=== PATIENT | female | born 1940 | race Caucasian/White ===

== ENCOUNTER → 2019-01-02 | Outpatient (REF) | payer MEDICARE | END | disposition home or self-care (01) | LOC: NUCMED 12-16 08:00 | PROVIDERS: ATTEND Internal Medicine Geriatric Medicine | DX: E04.1 Nontoxic single thyroid nodule (principal) | CPT/HCPCS: A9516 ==

== ENCOUNTER 2021-06-20 21:56 | Inpatient (IN) | payer MEDICARE ==
[~2021-06-20] VITALS: Ht 157.5 cm; Wt 77.0 kg
--- NOTE | 2021-06-20 22:05 | NUR ---
PT TO ROOM 14 FROM OUTSIDE WAITING AREA DO TO COVID RESTRICTIONS. YELLING AT ME...APOLOGIZED AND EXPLAINED THAT THINGS ARE A LITTLE SLOWER DO TO THE PANDEMIC...HE YELLED SOME MORE AND TOLD ME THERE WAS NO PANDEMIC. I TOLD HIM THERE WAS NO NEED TO BE RUDE...CONTINUED TO YELL. TOLD HIM TO WAIT OUTSIDE BECAUSE HE DID NOT HAVE SHOES ON. TRIAGED AT BEDSIDE...PT ONLY ANSWERED EVERY QUESTION WITH "I DON'T KNOW...ASK MY ."
[2021-06-20 22:55] LABS: HEMATOCRIT 35.4 % (37.0-47.0); HEMOGLOBIN 11.9 g/dl (12.0-16.0); IMMATURE GRANULOCYTES 0.6 % (0.0-5.0); MEAN CELL VOLUME 94.9 fL CALC (80.0-100.0); MEAN CORPUSCULAR HGB 31.9 pG CALC (26.0-32.0); MEAN CORPUSCULAR HGB CONC 33.6 g/dL CAL (32.0-36.0); NEUT# 10.09 thou/uL (2.00-7.15); RED BLOOD COUNT 3.73 mill/uL (4.20-5.60); RED CELL DISTRI WIDTH 12.7 % (11.5-15.5)
--- NOTE | 2021-06-20 23:00 | NUR ---
Reassessment of patient completed. No distress noted.
--- NOTE | 2021-06-20 23:05 | NUR ---
PT IS BEING NONCOMPLIANT AND DEMANDING. SHE WILL NOT FOLLOW COMMANDS AND REFUSES TO COMPLY WITH REQUEST. WHEN YOU TELL HER THE ORDER YOU ARE GOING TO COMPLETE A TASK AND IT IS NOT WHAT SHE WANTS SHE ACCUSES ME OF BEING MEAN & FRESH WHEN I ASST. HER ONTO A BED RICH(HER WAS IN THE ROOM)
[2021-06-20 23:14] LABS: ALBUMIN 4.5 g/dL (3.2-5.0); ALKALINE PHOSPHATASE 77 u/l (38-126); AMYLASE 64 u/l (30-110); ANION GAP 16 (6-22 (CALC)); BILIRUBIN, TOTAL 0.5 mg/dL (0.0-1.4); BUN 17 mg/dL (8-23); BUN/CREATININE RATIO 25 (12-20 (CALC)); CARBON DIOXIDE 27 mmol/l (22-30); CHLORIDE 95 mmol/l (95-108); CREATININE 0.7 mg/dL (0.5-1.0); GFR > 60 ML/MIN (>=60 (CALC)); GFR FOR AFR.AMER. > 60 ML/MIN (>=60 (CALC)); LIPASE 104 u/l (23-300); POTASSIUM 3.5 mmol/l (3.5-5.1); SGOT/AST 26 u/l (9-36); SODIUM 134 mmol/l (137-146); TOTAL PROTEIN 7.2 g/dL (6.3-8.2)
[2021-06-20 23:16] LABS: INTERNATIONAL NORMALIZED RATIO 0.9 RATIO (0.7-1.3); PROTHROMBIN TIME 9.8 SECONDS (9.0-12.5)
[2021-06-21] VITALS (56 sets, daily range): BP systolic 64–181; BP diastolic 30–66
[2021-06-21 00:23] LABS: URINE BILIRUBIN - DIPSTICK NEGATIVE (NEGATIVE); URINE BLOOD DIPSTICK MODERATE (NEGATIVE); URINE COLOR YELLOW; URINE GLUCOSE - DIPSTICK NEGATIVE (NEGATIVE); URINE KETONE 15 mg/dL (NEGATIVE); URINE LEUK ESTERASE LARGE (NEGATIVE); URINE NITRITE - DIPSTICK NEGATIVE (Negative); URINE PH 7.5 (4.5-8.0); URINE PROTEIN - DIPSTICK 30 mg/dL (NEG-TRACE); URINE SPECIFIC GRAVITY 1.015; URINE UROBILINOGEN - DIPSTICK 0.2 E.U./dL (0.2)
[2021-06-21 00:25] LABS: URINE BACTERIA FEW hpf; URINE SQUAMOUS EPITHELIAL CELL FEW EPI/hpf (0-FEW)
--- NOTE | 2021-06-21 00:35 | NUR ---
Reassessment of patient completed. No distress noted. PT REFUSESS TO FOLLOW ANY REQUEST AND IS VERY ABRASIVE WITH ANY CONTACT WITH HER AND NURSING STAFF
--- NOTE | 2021-06-21 01:30 | NUR ---
Reassessment of patient completed. No distress noted.
[2021-06-21 05:56] LABS: IMMATURE GRANULOCYTES 0.1 % (0.0-5.0); MEAN CELL VOLUME 95.6 fL CALC (80.0-100.0); MEAN CORPUSCULAR HGB 32.6 pG CALC (26.0-32.0); NEUT# 11.03 thou/uL (2.00-7.15); RED BLOOD COUNT 2.98 mill/uL (4.20-5.60); RED CELL DISTRI WIDTH 12.9 % (11.5-15.5)
[2021-06-21 06:00] LABS: ALBUMIN 3.7 g/dL (3.2-5.0); ALKALINE PHOSPHATASE 59 u/l (38-126); ANION GAP 12 (6-22 (CALC)); BUN 15 mg/dL (8-23); BUN/CREATININE RATIO 22 (12-20 (CALC)); CARBON DIOXIDE 27 mmol/l (22-30); CHLORIDE 98 mmol/l (95-108); CREATININE 0.7 mg/dL (0.5-1.0); GFR > 60 ML/MIN (>=60 (CALC)); GFR FOR AFR.AMER. > 60 ML/MIN (>=60 (CALC)); SGOT/AST 24 u/l (9-36); SODIUM 133 mmol/l (137-146)
--- NOTE | 2021-06-21 06:01 | NUR ---
PT HAS MADE MULTIPLE ATTEMPTS TO GET OUT OF BED AND I HAVE ASKED HER MULTIPLE TIME TO USE THE CALL GILMORE IF SHE NEEDS ASST.
[2021-06-21 06:02] LABS: HEMATOCRIT 28.5 % (37.0-47.0); HEMOGLOBIN 9.7 g/dl (12.0-16.0)
[2021-06-21 06:10] LABS: BILIRUBIN, TOTAL 0.9 mg/dL (0.0-1.4)
--- NOTE | 2021-06-21 07:00 | NUR ---
PATIENT CALLING/YELLING MULTIPLE TIMES, STATES SHE NEEDS HER SHEETS STREIGHTENED.
--- NOTE | 2021-06-21 07:20 | NUR ---
PATIENT ASSISTED EXTENSIVLY TO ACHEIEVE PERSONAL COMFORTS
--- NOTE | 2021-06-21 08:01 | NUR ---
REPORT TO OR NURSE, PATIENT TO OR @THIS TIME
[2021-06-21] MEDS ORDERED: ALLOPURINOL100 MG PO (11:01)
[2021-06-21] MEDS ORDERED: LIPITOR10 M1 PO (11:02)
[2021-06-21] MEDS ORDERED: CENTRUM ADULTS1 TAB PO (11:03)
[2021-06-21] MEDS ORDERED: CITRACAL +3 PO (11:04)
[2021-06-21] MEDS ORDERED: ASPIRIN ENTERIC81 MG PO (11:05)
[2021-06-21] MEDS ORDERED: FLUCONAZOLE150 MG PO (11:06)
[2021-06-21] MEDS ORDERED: FUROSEMIDE20 MG PO (11:06)
[2021-06-21] MEDS ORDERED: METOPROL TAR25 MG PO (11:07)
[2021-06-21] MEDS ORDERED: NITROGLYCERIN0.4 MG SL (11:09)
[2021-06-21] MEDS ORDERED: NYSTATIN100000 UN2 TOP (11:11)
[2021-06-21] MEDS ORDERED: POTASSIUM99 MG PO (11:12)
[2021-06-21] MEDS ORDERED: OMEPRAZOLE DR40 MG PO (11:12)
[2021-06-21] MEDS ORDERED: VIT E SOLUBL400 UNIT PO (11:15)
[2021-06-21] MEDS ORDERED: ACETAMINOPHEN325 MG PO (11:26)
--- NOTE | 2021-06-21 12:00 | NUR ---
PATIENT RECEIVED TO ICU ROOM 1 VIA BED. BEDSIDE REPORT FROM OR TEAM. PATIENT INTUBATED. NG IN PLACE. ASSESSMENT COMPLETED. IVF INFUSING. LILIANA-SYNEPHRINE INFUSING PER FLIGHT DATA TECHNICIAN. PROPOFOL INFUSING. IV PATENT X2. RT AT BEDSIDE TO PLACE PATIENT ON VENTILATOR. VS SET TO EVERY 5 MINUTES FOR MEDICATION TITIRATIONS. WILL CONTINUE TO MONITOR CLOSELY.
--- NOTE | 2021-06-21 13:00 | NUR ---
PATIENT REMAINS INTUBATED AND SEDATED. VSS ON MONITOR. TITRATIONS PER TITRATION CHARTING. WILL CONTINUE TO MOMITOR.
--- NOTE | 2021-06-21 14:15 | NUR ---
DR PERRY AT BEDSIDE. PLAN OF CARE DISCUSSED. NEW ORDERS RECEIVED. CONSULTED VIA PHONED WITH DR MURRAY.
--- NOTE | 2021-06-21 14:30 | NUR ---
1 BOLUS OF LACTED RINGER INFUSING PER DR PERRY VERBAL ORDER
--- NOTE | 2021-06-21 15:30 | NUR ---
2ND BOLUS OF LACTATED RINGER INFUSING PER ORDERS
--- NOTE | 2021-06-21 16:00 | NUR ---
LAB AT BEDSIDE FOR TYPE AND SCREEN. ARM BAND PLACED AT THIS TIME.
--- NOTE | 2021-06-21 16:26 | NUR ---
PHONED TWAN. RECEIVED CONSENT FOR 2 UNITS OF PRBCS. WITNESS Anna GEE RN.
--- NOTE | 2021-06-21 17:33 | NUR ---
FIRST UNIT OF PRBCS INFUSING AT THIS TIME. TEMP 96.1 NOÉ GARCIA APPLIED
--- NOTE | 2021-06-21 19:40 | NUR ---
1 ST UNIT OF PRBC'S INFUSED WITHOUT INCIDENT. VSS. AFEBRILE.
--- NOTE | 2021-06-21 19:45 | NUR ---
PATIENT REMAINS INTUBATED ON VENT. VENT SETTINGS PER VENT INTERVENTION SCREEN. SEDATED ON PROPOFOL 35 MCG/KG/MIN WITH RASS -3. BREATH SOUNDS CLEAR. NGT TO LIS DRAINS SMALL AMOUNT OF LIGHT ROSS. LARGE ABD DSG INTACT WITH SHADOW OF DRAINAGE AT LOWER PORTION OF DSG. NO BOWEL SOUNDS HEARD. GREER DRAINS CLEAR YELLOW URINE. NO PERIPHERAL EDEMA, PULSES INTACT. SCD'D ON BILATERALLY. SALINE LOCK INTACT TO RAC. LSCTLC IN PLACE WITH PROPOFOL INFUSING AND LILIANA-SYNEPHERINE INFUSING AT 1 MCG/KG/MIN. SOFT WRIST RESTRAINTS IN PLACE. SCD'S IN PLACE BILATERALLY. [employer]NA DEVELOPER SHOWS SR.
--- NOTE | 2021-06-21 20:25 | NUR ---
SECOND UNIT OF PRBC'S STARTED AFTER VERIFICATION BY 2 NURSES. VSS. WILL CONTINUE TO MONITOR CLOSELY.
--- NOTE | 2021-06-21 20:40 | NUR ---
VSS. NO S/S OF TRANSFUSION REACTION.
--- NOTE | 2021-06-21 21:25 | NUR ---
TOLERATING BLOOD TRANSFUSION WELL. VSS. AFEBRILE.
--- NOTE | 2021-06-21 22:00 | NUR ---
REMAINS INTUBATED AND SEDATED. VSS. PROPOFOL GTT CONTINUES AT 35 MCG/KG/MIN. SR ON MONITOR.
--- NOTE | 2021-06-21 22:30 | NUR ---
2 ND UNIT OF PRBC'S INFUSED WITHOUT INCIDENT. VSS. AFEBRILE. SR ON MONITOR.
[2021-06-22] VITALS (46 sets, daily range): BP systolic 81–183; BP diastolic 41–74
--- NOTE | 2021-06-22 | NUR ---
VENT SETTINGS UNCHANGED FROM EARLIER. O2 SATS MAINTAINED AT 100% VSS. SR ON MONITOR. PROPOFOL GTT CONTINUES AT 35 MCG/KG/MIN AND NE-SYNEPHERINE GTT INFUSING AT 0.7 MCG/KG/MIN.
--- NOTE | 2021-06-22 02:00 | NUR ---
INUBATED AND SEDATED. RASS -3 ON PROPOFOL AT 35 MCG/KG/MIN. VSS. IN NO ACCUT DISTRESS. WILL CONTINUE TO MONITOR CLOSELY.
--- NOTE | 2021-06-22 03:00 | NUR ---
COMPLETE BED BATH GIVEN. LINENS CHANGED, TURNED AND REPOSITIONED. SUX ORALLY FOR THICK CLEAR WITH SOME BLOODY STREAKS.
--- NOTE | 2021-06-22 04:00 | NUR ---
RESTING QUIETLY AND CALMLY. REMAINS ON PROPOFOL GTT AT 35 MCG/KG/MIN. REMAIN INTUBATED ON VENT. VSS. SR ON MONITOR.
--- NOTE | 2021-06-22 05:00 | NUR ---
PATIENT WIDE AWAKE. PATIENT REACHING FOR ETT AND BITING DOWN ON TUBE. CALL TO Anna PACK/GLASS SANDER BELT BY Lizzie ROOT/SUPERVISOR CHANNEL PROCESS, ORDERS RECEIVED TO EXTUBATE PATIENT. PROPOFOL GTT DC'D. EXTUBATED BY RT AND PLACED ON O2 AT 3 L NC. O2 SAT 96-97% WEANING LILIANA-SYNEPHERINE GTT.
--- NOTE | 2021-06-22 05:30 | NUR ---
PATIENT RESTING QUIETLY. VSS. MAINTAINS O2 SATS 96%
--- NOTE | 2021-06-22 06:00 | NUR ---
NO CHANGES TO REPORT. VSS. O2 SAT 96% ST ON MONITOR.
[2021-06-22 06:08] LABS: ANION GAP 9 (6-22 (CALC)); BUN 15 mg/dL (8-23); BUN/CREATININE RATIO 21 (12-20 (CALC)); CARBON DIOXIDE 24 mmol/l (22-30); CHLORIDE 100 mmol/l (95-108); CREATININE 0.7 mg/dL (0.5-1.0); GFR > 60 ML/MIN (>=60 (CALC)); GFR FOR AFR.AMER. > 60 ML/MIN (>=60 (CALC)); POTASSIUM 4.1 mmol/l (3.5-5.1); SODIUM 129 mmol/l (137-146)
[2021-06-22 06:11] LABS: HEMATOCRIT 26.4 % (37.0-47.0); HEMOGLOBIN 8.7 g/dl (12.0-16.0); IMMATURE GRANULOCYTES 0.3 % (0.0-5.0); MEAN CELL VOLUME 97.1 fL CALC (80.0-100.0); NEUT# 8.33 thou/uL (2.00-7.15); RED BLOOD COUNT 2.72 mill/uL (4.20-5.60); RED CELL DISTRI WIDTH 13.9 % (11.5-15.5)
--- NOTE | 2021-06-22 06:30 | NUR ---
PATIENT REMOVED NGT.
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
--- NOTE | 2021-06-22 20:15 | NUR ---
PATIENT RESTING IN BED. AWAKE, ALERT, CONFUSED. ORIENTED TO PERSON ONLY. NOT FOLLOWING ANY DIRECTIONS. ABLE TO MOVE ALL EXTREMITIES. PATIENT UNCOOPERATIVE AND ARGUMENTIVE. GRABS AT STAFF. SOFT WRIST RESTRAINTS ON BILATERALLY. RESP NON-LABORED. O2 ON AT 3 L NC. BREATH SOUNDS CLEAR THROUGHOUT LUNG ZEPEDA. LARGE ABD DSG INTACT WITH SHADOW OF DRAINAGE AT LOWER PORTION OF DSG. PUREWICK IN PLACE DRAINS CLEAR YELLOW URINE. TRACE EDEMA OF BLE. LSCTLC IN PLACE WITH AMIODARONE GTT DECREASED AT THIS TIME TO 0.5 MG/MIN AND LIPIDS AT 21 ML/HR. RAC SALINE LOCK IN PLACE. SCD'S IN PLACE. HOSPICE NURSE SHOWS SR-ST. DISCUSSED PLAN OF CARE.
--- NOTE | 2021-06-22 22:03 | NUR ---
PATIENT YELLING OUT, ATTMEPTS TO STRIKE AT NURSES. MEDICATED WITH ZYPREXA 10 MG IM LVL FOR AGITATION.
--- NOTE | 2021-06-22 23:00 | NUR ---
LITTLE EFFECT FROM ZYPREXA. PATIENT CONTINUES TO BE RESTLESS AND AGITATED. ATTEMPTS TO CALM PATIENT WITH VERBAL CUES, EMOTIONAL SUPPORT AND REASSURANCE UNSUCCESSFUL. SOFT WRIST RETRAINTS REMAIN IN PLACE. VSS. SR ON MONITOR.
[2021-06-23] VITALS (22 sets, daily range): BP systolic 116–164; BP diastolic 40–66
--- NOTE | 2021-06-23 | NUR ---
NO CHANGES TO REPORT. DOZES FOR SHORT INTERVALS. VSS. SR ON MONITOR. AMIODARONE GTT CONTINUES AT 0.5 MG/MIN. TPN AND LIPIDS INFUSING WITHOUT INCIDENT.
--- NOTE | 2021-06-23 02:00 | NUR ---
CONTINUES TO REST WITH EYES CLOSED FOR SHORT INTERVALS. VSS. RESP NON-LABORED. LIPIDS INFUSED. TPN AND AMIODARONE GTT CONTINUE TO INFUSE WITHOUT INCIDENT. SR ON MONITOR.
--- NOTE | 2021-06-23 03:51 | NUR ---
NO CHANGES TO REPORT. VSS. RESP NON-LABORED. REMAINS CONFUSED.
[2021-06-23 05:50] LABS: HEMATOCRIT 25.7 % (37.0-47.0); HEMOGLOBIN 8.3 g/dl (12.0-16.0); MEAN CELL VOLUME 99.2 fL CALC (80.0-100.0); MEAN CORPUSCULAR HGB CONC 32.3 g/dL CAL (32.0-36.0); RED BLOOD COUNT 2.59 mill/uL (4.20-5.60)
[2021-06-23 06:01] LABS: ANION GAP 10 (6-22 (CALC)); BUN 17 mg/dL (8-23); BUN/CREATININE RATIO 24 (12-20 (CALC)); CARBON DIOXIDE 23 mmol/l (22-30); CHLORIDE 101 mmol/l (95-108); CREATININE 0.7 mg/dL (0.5-1.0); GFR > 60 ML/MIN (>=60 (CALC)); GFR FOR AFR.AMER. > 60 ML/MIN (>=60 (CALC)); POTASSIUM 3.7 mmol/l (3.5-5.1); SODIUM 131 mmol/l (137-146)
--- NOTE | 2021-06-23 06:45 | NUR ---
COMPLETE BED BATH AND LINENS CHANGED. VSS. RESP NON-LABORED. REPOSITONED IN BED.
--- NOTE | 2021-06-23 06:45 | NUR ---
REPORT RECEIVED FROM FARTUN COLLINS. CARE ASSUMED
--- NOTE | 2021-06-23 07:00 | NUR ---
PATIENT RESTING IN BED AWAKE. PT IS ALERT HOWEVER IS NOT ORIENTED. PATIENT MOANS ALLOWED. ASKED PATIENT IF SHE WAS IN PAIN. PATIENT DID NOT RESPOND. PATIENT NOTED TO HAVE SHALLOW RAPID BREATHING. O2 SAT 87%. PT ON O2 5L NASAL CANNULA. PATIENT MIUTH BREATHING. RT CALLED TO BEDSIDE TO EVALUATE. MOVED O2 TO MOUTH. O2 SAT INCREASED TO 98%. DECREASED O2 TO 3LNC. RESPIRATONS DECREASED. PT RESPIRATIONS REMAIN SHALLOW HOWEVER PT DID JUST HAVE ABDOMINAL SURGERY. IVF INFUSING, TPN INFUSING, AMIODARONE GTT INFUSING. IV PATENT X1. CALL LIGHT IN REACH. BED ALARM IN PLACE FOR PATIENT SAFETY. WILL CONTINUE TO MONITOR CLOSELY.
--- NOTE | 2021-06-23 07:13 | NUR ---
PT RESTING COMFORTABLY IN BED, LAYING FLAT. NAD. SCRAP KETTLE TENDER TO MONITOR.
--- NOTE | 2021-06-23 09:00 | NUR ---
DR PERRY AT BEDSIDE AT THIS TIME
--- NOTE | 2021-06-23 09:30 | NUR ---
ACCUCHECK OBTAINED 252
--- NOTE | 2021-06-23 10:00 | NUR ---
DR MURRAY AT BEDSIDE TO SEE PATIENT.
--- NOTE | 2021-06-23 10:15 | NUR ---
PATIENT TO CAT SCAN VIA BED.
--- NOTE | 2021-06-23 10:35 | NUR ---
PATIENT RETURNED TO ICU BED 1. GREER PLACED USING STERILE TECHNIQUE. IMMEADIATE RETURN OF URINE. 850 OF URINE IN TOTAL. UA OBTAINED. PATIENT TOLERATED WELL. UA SENT TO LAB FOR REFERENCE
[2021-06-23 10:52] LABS: URINE BILIRUBIN - DIPSTICK NEGATIVE (NEGATIVE); URINE BLOOD DIPSTICK NEGATIVE (NEGATIVE); URINE COLOR YELLOW; URINE GLUCOSE - DIPSTICK NEGATIVE (NEGATIVE); URINE KETONE NEGATIVE (NEGATIVE); URINE LEUK ESTERASE NEGATIVE (NEGATIVE); URINE PROTEIN - DIPSTICK TRACE mg/dL (NEG-TRACE); URINE UROBILINOGEN - DIPSTICK 0.2 E.U./dL (0.2)
[2021-06-23 10:53] LABS: URINE NITRITE - DIPSTICK NEGATIVE (Negative)
--- NOTE | 2021-06-23 11:30 | NUR ---
RESTRAINTS REAPPLIED AT THIS TIME DUE TO PATIENT PULLING OFF ALL MEDICAL EQUIPMENT AND TRYING T GET OUT OF BED UNSAFE. UNABLE TO REORIENT PATIENT.
--- NOTE | 2021-06-23 12:56 | NUR ---
PATIENT RESTING IN BED WITH EYES CLOSED. RESP ARE EVEN AND UNLLABORED. NO DISTRESS NOTED. VSS ON MONITOR. CALL LIGHT IN REACH. WILL CONTINEU TO MONITOR.
--- NOTE | 2021-06-23 14:12 | NUR ---
amiodarone gtt completed at this time. tpn bag and tubing changed
--- NOTE | 2021-06-23 15:00 | NUR ---
DR PERRY AT BEDSIDE AT THIS TIME. DISCUSSED THAT AMIODARONE GTT HAD COMPLETED AND PATIENT STILL UNABLE TO TAKE PO MEDS. ORDER RECEIVED TO CONTINUE IV AMIODARONE.
--- NOTE | 2021-06-23 15:46 | NUR ---
IV AMIODARONE STARTED PER MAR AT 0.5MG. VSS ON MONITOR. WILL CONTINUE TO MOMITOR.
--- NOTE | 2021-06-23 18:00 | NUR ---
PATIENT RESTING IN BED WITH EYES CLOSED. RESP ARE EVEN AND UNLABORED. NO DISTRESS NOTED. CALL LIGHT IN REACH. WILL CONTINUE TO MONITOR.
--- NOTE | 2021-06-23 19:00 | NUR ---
PATIENT RESTING IN BED WITH EYES CLOSED. NO DISTRESS NOTED. PT IS ALERT AND RESPONDS TO VERBAL STIMULI. HOWEVER IS NOT ORIENTED. VSS ON MONITOR. WILL CONTINUE TO MONITOR.
--- NOTE | 2021-06-23 22:09 | NUR ---
PATIENT RESTING IN BED WITH EYES CLOSED. NO DISTRESS NOTED. VSS ON MONITOR.WILL CONTINUE TO MONITOR.
--- NOTE | 2021-06-23 22:45 | NUR ---
BEDSIDE REPORT RECEIVED FROM Waldemar RAZO RN. NON-INVASIVE HEMODYNAMICS STABLE. PT APPEARS TO BE SLEEPING COMFORTABLY. NO APPARENT DISTRESS. WEARING 02 @ 3L/MIN VIA NC. L-SUBCLAVIAN TLC WITH NON-OCCLUSIVE DRESSING C/D/I INFUSING NS@KVO, AMIODARONE GTT @16.7ML/H (0.5MG/MIN) AND TPN @84ML/H. MIDLINE INCISION WITH DRY DRESSING SECURED OVER TOP, C/D/I. GREER SECURED TO LEG, TUBING UNKINKED AND UNOBSTRUCTED. DRAINING TO GRAVITY. SCDS ON B/L.
[2021-06-24] VITALS: BP 136/50
--- NOTE | 2021-06-24 00:25 | NUR ---
POINT OF CARE GLUCOSE 171mg/dl.
[2021-06-24 01:00] VITALS: BP 118/37
--- NOTE | 2021-06-24 01:54 | NUR ---
Levi ALCANTAR IN ROOM ASSESSING DROP IN SPO2. NO RESPIRATORY DISTRESS. SUSPECTED EQUIPMENT MALFUNCTION. WHILE CHANGING PULSE-OX PT'S HEART RATE DROPPED TO 20S. CODE CALLED. ATROPINE FROM CRASH CART PUSHED. NO PULSE. AGONAL BREATHING. CPR INITIATED. SEE CODE BLUE RECORD FOR FURTHER DETAIL.
--- NOTE | 2021-06-24 02:13 | NUR ---
RESCUSITATION EFFORTS CEASED AFTER APPROXIMATELY [address] SCHWARZ. NO OBJECTIONS FROM CODE TEAM. TIME OF CALLED AT [address] SCHWARZ.
--- NOTE | 2021-06-24 02:19 | NUR ---
Naresh PACK APRN NOTIFIED OF PT'S ARREST, SUBSEQUENT RESCUCITAION EFFORTS, AND EXPIRATION. Naresh PACK APRN TO CALL PT'S NEXT OF KIN/ SPOUSE AND NOTIFY.
--- NOTE | 2021-06-24 02:20 | NUR ---
SPOKE WITH ONESIMO AT [facility] @ 0220. [employer] DECLINES AND REFERS TO [facility] [id number].
--- NOTE | 2021-06-24 02:50 | NUR ---
SPOKE WITH PT'S WHO WISHES TO COME IN AND SEE PT. PERMISSION GRANTED BY ADMINISTRATION ON CONDITION THAT PT WEAR MASK AND SIGN INFORMED WAIVER. PT AGREES. VERBALIZES UNDERSTANDING OF RISKS ASSOSCIATED WITH ENTERING ICU.
--- NOTE | 2021-06-24 02:54 | NUR ---
PER Maura DUDLEY RN, SPOKE WITH SHARMILA AT [facility]. PT CLEARED FOR RELEASE.
--- NOTE | 2021-06-24 03:05 | NUR ---
AT BEDSIDE. TISSUES AND COMFORTABLE SEATING PROVIDED. [facility] SELECTED FOR SPECIAL SERVICE REPRESENTATIVE BY .
--- NOTE | 2021-06-24 03:24 | NUR ---
SPOKE WITH DUY AT [facility]. ETA FOR P/U ONE HOUR.
--- NOTE | 2021-06-24 03:35 | NUR ---
ELECTS TO LEAVE AT THIS TIME. DECLINES OFFER TO CALL ANYONE FOR HIM OR SET UP TRANSPORT. DECLINES OFFER TO STAY LONGER. VERBALIZES UNDERSTANDING THAT PICKUP WILL BE HAPPENING IN APPROX. ONE HOUR. PRINTED ADDRESS AND CONTACT NUMBER OF HOME PROVIDED.
--- NOTE | 2021-06-24 05:00 | NUR ---
TRANSPORT RECEIVED PT'S REMAINS.
== END 2021-06-24 05:00 | disposition expired | DRG 329 ==
LOC: ED 21:56 → ED-I 06-21 00:02 → ED 06-21 00:24 → ED-I 06-21 00:25 → ICU 06-21 11:42
PROVIDERS: Surgery; ADMIT Hospitalist; ATTEND Hospitalist
PROC: 0DBB0ZZ Excision of Ileum, Open Approach (ICD-10-PCS; principal; 2021-06-21)
PROC: 0DN80ZZ Release Small Intestine, Open Approach (ICD-10-PCS; 2021-06-21)
PROC: 0DJD4ZZ Inspection of Lower Intestinal Tract, Percutaneous Endoscopic Approach (ICD-10-PCS; 2021-06-21)
PROC: 02HV33Z Insertion of Infusion Device into Superior Vena Cava, Percutaneous Approach (ICD-10-PCS; 2021-06-21)
PROC: 30243N1 Transfusion of Nonautologous Red Blood Cells into Central Vein, Percutaneous Approach (ICD-10-PCS; 2021-06-21)
PROC: 30243N1 Transfusion of Nonautologous Red Blood Cells into Central Vein, Percutaneous Approach (ICD-10-PCS; 2021-06-21)
PROC: 5A12012 Performance of Cardiac Output, Single, Manual (ICD-10-PCS; 2021-06-24)
PROC: 0BH17EZ Insertion of Endotracheal Airway into Trachea, Via Natural or Artificial Opening (ICD-10-PCS; 2021-06-24)
DX: K56.50 Intestinal adhesions [bands], unspecified as to partial versus complete obstruction (principal); K55.021 Focal (segmental) acute infarction of small intestine; N39.0 Urinary tract infection, site not specified; F03.91 Unspecified dementia, unspecified severity, with behavioral disturbance; R57.1 Hypovolemic shock; I48.91 Unspecified atrial fibrillation; Z20.822 Contact with and (suspected) exposure to COVID-19
CPT/HCPCS: J0282; J1160; P9016; Q9967; S0164; S0166